=== PATIENT | female | born 1995 | race Caucasian/White ===

== ENCOUNTER → 2021-09-23 | Outpatient (CLI) | payer MEDICAID ==
--- NOTE | 2021-09-23 13:42 | Diagnostic Imaging Report ---
INDICATION: care. TECHNIQUE: Multiple real-time grayscale images were obtained over the gravid uterus. COMPARISON: None. FINDINGS: There is a single live fetus in a cephalic presentation. heart rate was recorded at 143 BPM. Amniotic fluid index is 16.1 cm. Placenta is posterior. No previa is seen. Cervical length is 5.3 cm. Biophysical profile score is normal at 8/8. Biometrical measurements are as follows: Biparietal 7.40 cm, age 29 weeks 5 days. Head circumference 28.78 cm, age 31 weeks 5 days. Abdominal circumference 23.90 cm, age 28 weeks 2 days. Femur length 5.30 cm, age 28 weeks 2 days. Sonographic estimate age: 29 weeks 4 days. Sonographic estimated date of delivery: 12/05/2021. Estimated Weight: 1254 gm (+/- 183 gm). LMP percentile: 17%. heart rate: 143 beats per minute. number: 1 of 1. IMPRESSION: 1. Single live IUP of 29 weeks 4 days gestational age with estimated date of confinement sonographically of 12/05/2021. 2. Normal biophysical profile score of 8/8. Dictated by: Dictated on workstation # [id number]
== END ==
LOC: RAD 10:15
PROVIDERS: ATTEND Obstetrics & Gynecology
DX: Z34.83 Encounter for supervision of other normal pregnancy, third trimester (principal); Z3A.29 29 weeks gestation of pregnancy
CPT/HCPCS: 76805; 76819

== ENCOUNTER 2021-11-11 10:45 | Outpatient (CLI) | payer MEDICAID ==
[~2021-11-11] VITALS: Ht 165 cm; Wt 76.6 kg
[2021-11-11 11:00] VITALS: BP 115/69
[2021-11-11] MEDS ORDERED: D5 LR IV SOLUTION 1,000 ML IV SCH (11:15)
[2021-11-11] MEDS ORDERED: cefTRIAXone 1 GM PRE-MIX 50 ML IV NR (11:15)
[2021-11-11 11:35] LABS: BASOPHILS % (AUTO) 0 % (0-10); EOSINOPHILS % (AUTO) 0 % (0-10); HEMATOCRIT 28 % (35-52); HEMOGLOBIN 8.7 g/dL (11.5-16.0); LYMPHOCYTES # (AUTO) 0.8 10^3/uL (1.0-4.0); LYMPHOCYTES % (AUTO) 6 % (12-44); MEAN CORPUSCULAR HEMOGLOBIN 33 pg (25-34); MEAN CORPUSCULAR HGB CONC 31 g/dL (32-36); MEAN CORPUSCULAR VOLUME 107 fL (80-99); MEAN PLATELET VOLUME 10.2 fL (9.0-12.2); MONOCYTES # (AUTO) 0.6 10^3/uL (0.0-1.0); MONOCYTES % (AUTO) 5 % (0-12); NEUTROPHILS # (AUTO) 10.7 10^3/uL (1.8-7.8); NEUTROPHILS % (AUTO) 88 % (42-75); PLATELET COUNT 172 10^3/uL (130-400); WHITE BLOOD COUNT 12.1 10^3/uL (4.3-11.0)
[2021-11-11 11:55] LABS: BAND NEUTROPHILS 2 %; LYMPHOCYTES % (MANUAL) 7 %; METAMYELOCYTES % 1 %; MONOCYTES % (MANUAL) 1 %; NEUTROPHILS % (MANUAL) 89 %
[2021-11-11 11:56] LABS: ANISOCYTOSIS SLIGHT
[2021-11-11 12:09] LABS: ALBUMIN 3.1 GM/DL (3.2-4.5); BILIRUBIN,TOTAL 0.9 MG/DL (0.1-1.0); CALCIUM 8.8 MG/DL (8.5-10.1); CREATININE SERUM 0.6 MG/DL (0.60-1.30); POTASSIUM 3.8 MMOL/L (3.6-5.0)
[2021-11-11] MEDS ORDERED: IRON SUCROSE 200 MG/10 ML (VENOFER) VIAL IV NR (12:15)
[2021-11-11 12:30] VITALS: BP 115/69
--- NOTE | 2021-11-11 15:24 | Diagnostic Imaging Report ---
INDICATION: Limited exam for growth. TECHNIQUE: Multiple real-time grayscale images were obtained over the gravid uterus. COMPARISON: None FINDINGS: There is single live intrauterine fetus vertex presentation. Amniotic fluid index is 13 cm. Placenta is posterior. No evidence of previa. Biometrical measurements are as follows: Biparietal 9.59 cm, age 39 weeks 2 days. Head circumference 33.27 cm, age 38 weeks 0 days. Abdominal circumference 32.98 cm, age 37 weeks 0 days. Femur length 6.68 cm, age 34 weeks 3 days. Sonographic estimate age: 37 weeks 2 days. Sonographic estimated date of delivery: 11/30/2021. Estimated Weight: 2991 gm (+/- 437 gm). LMP percentile: 62%. heart rate: 150 beats per minute. number: 1 of 1. IMPRESSION: Live intrauterine with current biometric measurements in the 60th percentile by LMP. Dictated by: Dictated on workstation # [id number]
--- NOTE | 2021-11-19 12:44 | HISTORY AND PHYSICAL ---
DATE OF SERVICE: 11/11/2021 SHORT STAY SUMMARY CHIEF COMPLAINT: Back pain with history of UTI. HISTORY OF PRESENT ILLNESS: This is a 26-year-old 5, para 4-0-0-4, at 36 weeks and 2 days gestation, who was sent to labor and delivery for IV fluids and evaluation. The patient has had diagnosis of pyelonephritis early in the and is currently on Keflex b.i.d. for prophylaxis following full treatment. Urine cultures have been E. coli. He denies fevers or chills but does have back pain. Denies dysuria or change in bladder frequency. Denies hematuria. Denies contractions, leaking of fluid, vaginal bleeding. Positive movement. Denies vomiting, diarrhea or constipation, but is having occasional nausea. Denies headache, dizziness, chest pain, cough, shortness of air. No other complaints. PAST OBSTETRICAL HISTORY: Spontaneous vaginal delivery x4 at term. PAST MEDICAL HISTORY: Pyelonephritis as above and gestational anemia. PAST SURGICAL HISTORY: None. MEDICATIONS: vitamins, Bonjesta, Keflex 500 mg p.o. b.i.d. and iron supplement, probiotic and ____. ALLERGIES: NO KNOWN DRUG ALLERGIES. SOCIAL HISTORY: Denies tobacco, alcohol or drug use. REVIEW OF SYSTEMS: Negative other than per HPI. FAMILY HISTORY: Briefly reviewed and noncontributory. PHYSICAL EXAMINATION: VITAL SIGNS: Stable. The patient is afebrile. heart tones are category 1. Frisbee is occasional, but not felt by the patient. GENERAL: Alert and oriented x3, no acute distress, resting comfortably in the bed. HEAD: Normocephalic, atraumatic. CHEST: Nonlabored. ABDOMEN: Gravid. No fundal tenderness. Mild CVA tenderness on the right, none appreciated on the left. EXTREMITIES: Nontender. LABORATORY DATA: Anemia as anticipated. Normal creatinine and liver function tests. Slightly elevated white blood cell count as expected. Urine culture pending. Growth sono with normal estimated weight and normal VINNY preliminary reports. ASSESSMENT AND PLAN: A 26-year-old 5, para 4, at 36 weeks and 2 days with cystitis and dehydration, normal estimated weight. PLAN: Intravenous fluid bolus administered. IV iron ordered as the patient has not been able to tolerate iron as well but has no acute bleeding risks. A dose of Rocephin administered and will continue Keflex while urine cultures pending. Anticipate dismissal home following fluids for routine followup and precautions reviewed. Job ID: [id number] DocumentID: [id number] Dictated Date: 11/18/2021 17:05:49 Etcher Enameling Date: 11/18/2021 22:03:14 Dictated By: Liliana Maguire MD
== END 2021-11-11 15:30 | disposition home or self-care (01) ==
LOC: LDRP 10:45 → UNDOADMOB 10:45 → WSo 10:45 → LDRP 10:45 → UNDODISOB 15:30 → WSo 15:30 → EDSTATUS 11-17 14:12
PROVIDERS: ATTEND Obstetrics & Gynecology
DX: O23.13 Infections of bladder in pregnancy, third trimester (principal); O26.893 Other specified pregnancy related conditions, third trimester; E86.0 Dehydration; Z87.440 Personal history of urinary (tract) infections; Z3A.36 36 weeks gestation of pregnancy
CPT/HCPCS: 76805; 80053; 85007; 85027; 96361; 96374; G0463; 36415; 99212

== ENCOUNTER 2021-11-28 04:28 | Outpatient (CLI) | payer MEDICAID ==
[~2021-11-28] VITALS: Ht 167.7 cm; Wt 77.4 kg
[2021-11-28 04:45] VITALS: BP 123/73
[2021-11-28 05:11] LABS: BILIRUBIN,URINE NEGATIVE (NEGATIVE); CLARITY,URINE CLEAR; COLOR,URINE YELLOW; GLUCOSE, URINE (UA) NEGATIVE (NEGATIVE); KETONES,URINE TRACE (NEGATIVE); LEUKOCYTE ESTERASE ,URINE NEGATIVE (NEGATIVE); NITRITE,URINE NEGATIVE (NEGATIVE); PROTEIN,URINE NEGATIVE (NEGATIVE)
[2021-11-28 05:17] LABS: BACTERIA,URINE NEGATIVE /HPF; SQUAMOUS EPITHELIAL CELL,UR 0-2 /HPF
[2021-11-28] MEDS ORDERED: PREN1.4T2 PO (05:57)
[2021-11-28] MEDS ORDERED: FERR-84 PO (05:57)
--- NOTE | 2021-11-30 08:11 | Physician Query-Final Dx ---
Clinic Account Progress/Dx Physician Query: Please give diagnosis Please include # weeks gestation Date of Service Nov 28, 2021 at 04:28 CORNEL,AprNov 30, 2021 08:11
== END 2021-11-28 06:02 | disposition home or self-care (01) ==
LOC: WSo 04:28 → LDRP 04:31 → WSo 06:02
PROVIDERS: ATTEND Obstetrics & Gynecology
DX: O62.9 Abnormality of forces of labor, unspecified (principal); Z3A.38 38 weeks gestation of pregnancy
CPT/HCPCS: 81000

== ENCOUNTER 2021-12-04 04:15 | Inpatient (IN) | payer MEDICAID ==
[~2021-12-04] VITALS: Ht 167.7 cm; Wt 77.3 kg
[2021-12-04] VITALS (10 sets, daily range): BP systolic 118–135; BP diastolic 62–87
[~2021-12-04 04:15] MED LIST: FERR-84 PO; PREN1.4T2 PO
[2021-12-04] MEDS: D5 LR IV SOLUTION 1,000 ML IV SCH (04:45)
[2021-12-04] MEDS ORDERED: LIDOCAINE/EPI 2% 1:200,00 (XYLOCAINE) 10 ML VIAL ONE (04:46)
[2021-12-04] MEDS ORDERED: D5 LR IV SOLUTION 1,000 ML IV ONE (04:47)
[2021-12-04] MEDS ORDERED: OXYTOCIN PRE-MIX DRIP 500 ML IV ONE ×2 (04:47→05:51)
[2021-12-04] MEDS: OXYTOCIN PRE-MIX DRIP 500 ML IV SCH ×2 (05:14→05:52)
[2021-12-04] MEDS ORDERED: WITCH HAZEL(TUCKS) 40 EA JAR TOP PRN (05:30)
[2021-12-04] MEDS ORDERED: MEASLES,MUMPS,RUBELLA 1 EA INJ SQ ONE (05:30)
[2021-12-04] MEDS ORDERED: DIBUCAINE 1% OINTMENT 30 GM TUBE TOP PRN (05:30)
[2021-12-04] MEDS ORDERED: NALOXONE 0.4 MG/ML 1 ML (NARCAN) VIAL IV PRN (05:30)
[2021-12-04] MEDS ORDERED: TETANUS,DIPTH,PERTUSS P/F (BOOSTRIX) 0.5 ML VIAL IM ONE (05:30)
[2021-12-04] MEDS ORDERED: BENZOCAINE/MENTHOL (DERMOPLAST) 56 ML CAN TP PRN (05:30)
--- NOTE | 2021-12-04 05:30 | History & Physical-OB ---
OB - Chief Complaint & HPI Date/Time Date of Admission: Date of Admission: Dec 04, 2021 at 04:15 Date seen by a Provider: Dec 04, 2021 Time Seen by a Provider: 04:45 Chief Complaint/History OB-Reason for Admission/Chief: Onset of Labor Hx : 5 Hx Para: 4 Expected Date of Delivery: Dec 07, 2021 Gestational Age in Weeks: 39 Gestational Age in Days: 4 Admission Nurse Assessment Rev: Yes History of Labs A neg GBS neg Allergies and Home Medications Allergies Coded Allergies: No Known Drug Allergies (Unverified , 11/11/21) Patient Home Medication List Home Medication List Reviewed: Yes Ferrous Sulfate (Iron) 325 Mg (65 Mg Iron) Tablet, 325 MG PO, (Reported) Entered as Reported by: MIKAL FLORES on 11/28/21 0557 Comb No.42/Folic Acid (Prena1 Chew Tablet) 1.4 Mg Tab.ch.bph, 1.4 MG PO, (Reported) Entered as Reported by: MIKAL FLORES on 11/28/21 0557 OB - History Hx of Present Care: Yes Ultrasounds: Normal mid trimester US Obstetrical Complications: None Medical Complications: None Patient Past Medical History na Social History/Family History 2nd Hand Smoke Exposure: No OB - Admission Exam Physical Exam HEENT: NCAT Heart: Rhythm Normal Lungs: Clear Abdomen: Gravid Extremities: Normal Reflexes: Normal Cervical Dilatation: 8cm Effacement: 100% Station: +1 Membranes: Intact Heart Rate: 130's Accelerations: Accelerations Present Decelerations: No Decelerations Short Term Variability: Present Steam Oven Operator Variability: Average (6-25) Contractions on Admission: < 5 Minutes Apart Intensity: Firm OB - Assessment/Plan/Diagnosis Assessment Assessment: active labor Admission Dx 26 yo @ 39 week Active labor GBS neg Admission Status: Inpatient Order (span 2 midnights) Reason for Inpatient Admission: Active labor at 39 weeks Plan Plan: Expectant Management SPENCER ERAZO DO Dec 04, 2021 05:30
--- NOTE | 2021-12-04 05:32 | OB Labor & Delivery Record ---
L&D History Date of Service Date of Service: Dec 04, 2021 History Expected Date of Delivery: Dec 07, 2021 Gestational Age in Weeks: 39 Hx : 5 Hx Para: 4 Complications Events: Routine care Operative Indications (Cesarea: N/A-Vaginal Delivery Intrapartal Events: None L&D Stage1 Stage One Onset of Labor - Date: Dec 04, 2021 Monitors and Tracing Monitor Mode: External Heart Rate: 135 Monitor Accelerations: Uniform Monitor Decelerations: Variable Half-Way Variability: Average (6-10) Short Term Variability: Present Presentation: Vertex Rupture of Membranes Spontaneous Ruture of Membrane: No Amniotic Membrane Rupture Time: 05:00 Amniotic Membrane Fluid Desc.: Clear Vaginal Bleeding Description: Normal Show Progress/Notes Patient of Dr. Maguire admitted 8 cm dialated vish q 3 min. She rapidly progressed to complete and + 1 station, where I presented and broke water and patient began to push uncontrolled. L&D Stage2 Stage Two Stage II Date: Dec 04, 2021 Monitors and Tracing Monitor Mode: External Monitor Accelerations: Uniform Monitor Decelerations: Variable Half-Way Variability: Average (6-10) Short Term Variability: Present Position: Right Occiput Anterior Presentation: Vertex Cord Descript/Complications Cord Vessel Description: 3 Vessels Delivery Type Infant Delivery Method: Spontaneous Vaginal Anterior Shoulder: Right Episiotomy/Perineal Laceration Laceraction(s)/Extensions: No Condition of Infant Delivery 1 minute Comment: 9 5 minute Comment: 9 Notes Live female infant weight pending Condition of Condition of : Living Exam: No Observed Abnormalities Resuscitation Resuscitation: N/A - Spontaneous Resp L&D Stage3 Stage Three Stage III Date: Dec 04, 2021 Pictocin Pitocin Administration Comment: 30 mu wide open after delivery of placenta Placenta Delivery Placenta Delivery: Spontaneous Delivery Summary Summary Estimated blood loss (mL): 300 Attending at delivery: Caleb Erazo DO Condition of Delivery Examined: Cervix Examined, Uterus Explored Post Hemorrhage: No Condition of Mother stable Condition of Infant (s) stable CALEB ERAZO DO Dec 04, 2021 05:32
[2021-12-04] MEDS ORDERED: CATHETER FLUSH 10 ML SYR IV SCH (06:00)
[2021-12-04] MEDS: IBUPROFEN 600 MG (MOTRIN) TAB PO SCH ×3 (06:30→18:13)
[2021-12-04 06:47] LABS: BASOPHILS % (AUTO) 0 % (0-10); EOSINOPHILS # (AUTO) 0.2 10^3/uL (0.0-0.3); EOSINOPHILS % (AUTO) 1 % (0-10); HEMATOCRIT 32 % (35-52); MEAN CORPUSCULAR HEMOGLOBIN 33 pg (25-34); MEAN CORPUSCULAR HGB CONC 32 g/dL (32-36); MEAN CORPUSCULAR VOLUME 105 fL (80-99); MONOCYTES # (AUTO) 0.7 10^3/uL (0.0-1.0); MONOCYTES % (AUTO) 5 % (0-12)
[2021-12-04 06:49] LABS: LYMPHOCYTES # (AUTO) 1.9 10^3/uL (1.0-4.0); LYMPHOCYTES % (AUTO) 13 % (12-44); MEAN PLATELET VOLUME 10.8 fL (9.0-12.2); NEUTROPHILS # (AUTO) 11.5 10^3/uL (1.8-7.8); NEUTROPHILS % (AUTO) 80 % (42-75); PLATELET COUNT 132 10^3/uL (130-400); WHITE BLOOD COUNT 14.3 10^3/uL (4.3-11.0)
[2021-12-04] MEDS: PRENATAL VITAMIN 1 EA TAB PO SCH (08:58)
[2021-12-04] MEDS: FERROUS SULF 325 MG (IRON) TAB PO SCH (08:58)
[2021-12-04] MEDS: DOCUSATE SODIUM 100 MG (COLACE) CAP PO SCH ×2 (08:58→22:05)
[2021-12-05] MEDS: IBUPROFEN 600 MG (MOTRIN) TAB PO SCH ×3 (00:35→11:50)
[2021-12-05 02:50] VITALS: BP 113/63
[2021-12-05 06:38] LABS: BASOPHILS % (AUTO) 0 % (0-10); EOSINOPHILS # (AUTO) 0.1 10^3/uL (0.0-0.3); EOSINOPHILS % (AUTO) 1 % (0-10); HEMATOCRIT 27 % (35-52); HEMOGLOBIN 8.4 g/dL (11.5-16.0); LYMPHOCYTES # (AUTO) 1.8 10^3/uL (1.0-4.0); LYMPHOCYTES % (AUTO) 22 % (12-44); MEAN CORPUSCULAR HEMOGLOBIN 33 pg (25-34); MEAN CORPUSCULAR HGB CONC 31 g/dL (32-36); MEAN CORPUSCULAR VOLUME 107 fL (80-99); MEAN PLATELET VOLUME 10.4 fL (9.0-12.2); MONOCYTES # (AUTO) 0.6 10^3/uL (0.0-1.0); MONOCYTES % (AUTO) 7 % (0-12); NEUTROPHILS # (AUTO) 5.9 10^3/uL (1.8-7.8); NEUTROPHILS % (AUTO) 71 % (42-75); PLATELET COUNT 106 10^3/uL (130-400); WHITE BLOOD COUNT 8.4 10^3/uL (4.3-11.0)
[2021-12-05] MEDS: D5 LR IV SOLUTION 1,000 ML IV SCH (06:43)
[2021-12-05 08:00] VITALS: BP 131/73
[2021-12-05] MEDS: DOCUSATE SODIUM 100 MG (COLACE) CAP PO SCH (08:00)
[2021-12-05] MEDS: FERROUS SULF 325 MG (IRON) TAB PO SCH (08:00)
[2021-12-05] MEDS: PRENATAL VITAMIN 1 EA TAB PO SCH (08:00)
[2021-12-05 13:14] VITALS: BP 131/73
--- NOTE | 2021-12-06 08:55 | CONSULTATION REPORT ---
DATE OF SERVICE: 12/05/2021 PROGRESS NOTE SUBJECTIVE: The patient states pain is well controlled, tolerating p.o. and has reduced. bottle feeding. No complaints. OBJECTIVE: VITAL SIGNS: Stable. She is afebrile. GENERAL: Alert and oriented x3, no acute distress, resting comfortably in the bed. CHEST: Nonlabored. ABDOMEN: Fundus is firm and nontender. EXTREMITIES: Nontender. IMPRESSION: Status post spontaneous vaginal delivery, day #1, doing well. PLAN: 1. Continue routine care and support. 2. Anticipate dismissal home today with routine followup in the clinic. Job ID: [id number] DocumentID: [id number] Dictated Date: 12/05/2021 03:33:47 Monitor Car Operator Date: 12/05/2021 06:06:32 Dictated By: Liliana Maguire MD [facility]
== END 2021-12-05 13:22 | disposition home or self-care (01) | DRG 807 ==
LOC: LDRP 04:15
PROVIDERS: ADMIT Obstetrics & Gynecology; ATTEND Obstetrics & Gynecology
PROC: 10E0XZZ Delivery of Products of Conception, External Approach (ICD-10-PCS; principal; 2021-12-04)
DX: O80 Encounter for full-term uncomplicated delivery (principal); Z37.0 Single live birth; Z3A.39 39 weeks gestation of pregnancy
CPT/HCPCS: 36415; 83033; 85025; 86850; 86900; 86901; 99212